=== PATIENT | male | born 2000 | race Two or more races ===

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

== ENCOUNTER 2018-10-20 13:29 | Emergency (ER) | payer OTHER ==
[~2018-10-20] VITALS: Ht 175.3 cm; Wt 65.5 kg
[2018-10-20 13:38] VITALS: BP 112/58
[2018-10-20] MEDS ORDERED: CEFTRIAXONE 250 MG IM ONE (14:00)
[2018-10-20] MEDS ORDERED: ONDANSETRON ODT 4 MG PO ONE (14:00)
[2018-10-20] MEDS ORDERED: CEFTRIAXONE 250 MG ONE (14:06)
[2018-10-20] MEDS ORDERED: ONDANSETRON ODT 4 MG ONE (14:06)
[2018-10-20] MEDS ORDERED: AZITHROMYCIN 500 MG TABLET ONE (14:10)
[2018-10-20] MEDS ORDERED: AZITHROMYCIN 500 MG TABLET PO ONE (14:30)
[2018-10-20 15:00] LABS: MICROSCOPIC AUTO
[2018-10-20 15:02] LABS: CULTURE INDICATED? YES
== END 2018-10-20 15:28 | disposition home or self-care (01) ==
LOC: ED 14:00
DX: H10.232 Serous conjunctivitis, except viral, left eye (principal); N34.2 Other urethritis
CPT/HCPCS: 81001; 87086; 87491; 87591; 96372; 99283; J0696